=== PATIENT | male | born 1970 | race Caucasian/White ===

== ENCOUNTER → 2018-01-26 | Outpatient (CLI) | payer OTHER | LOC: MRI 10:42 | DX: S22.069S Unspecified fracture of T7-T8 vertebra, sequela (principal); S32.000S Wedge compression fracture of unspecified lumbar vertebra, sequela; X58.XXXS Exposure to other specified factors, sequela ==

== ENCOUNTER → 2020-06-28 | Outpatient (CLI) | payer OTHER | LOC: CAT 08:36 | PROVIDERS: ATTEND Family Medicine | DX: Z13.6 Encounter for screening for cardiovascular disorders (principal); I25.10 Atherosclerotic heart disease of native coronary artery without angina pectoris; E78.00 Pure hypercholesterolemia, unspecified ==